=== PATIENT | male | born 1970 | race Caucasian/White ===

== ENCOUNTER 2023-03-16 21:11 | Inpatient (IN) | payer BC ==
[~2023-03-16] VITALS: Ht 190.5 cm; Wt 102.1 kg
[2023-03-16 22:22] VITALS: BP 133/86; PULSE 66; RESP 17; TEMP 98.6; O2SAT 100
[2023-03-16] MEDS ORDERED: DEXTROSE 50% SYRINGE 50 ML IV PRN (22:30)
[2023-03-16 23:00] VITALS: BP 133/86; PULSE 66; RESP 17; TEMP 98.6; O2SAT 100
[2023-03-17 04:00] VITALS: BP 123/78; PULSE 65; RESP 17; TEMP 97.7; O2SAT 100
[2023-03-17 05:57] LABS: BASOPHILS % 0.5 % (0.0-1.0); EOSINOPHILS # (AUTO) 0.1 (0.0-0.4); EOSINOPHILS % 2.3 % (0.0-6.0); HEMATOCRIT 39.1 % (38.2-49.6); HEMOGLOBIN 13.3 g/dL (14.0-18.0); LYMPHOCYTES # (AUTO) 2.4 (1.0-3.2); LYMPHOCYTES % 38.3 % (18.0-39.1); MEAN CORPUSCULAR HEMOGLOBIN 29.6 pg (28-32); MEAN CORPUSCULAR VOLUME 86.9 fL (81-99); MONOCYTES # (AUTO) 0.5 (0.2-0.8); MONOCYTES % 8.3 % (4.4-11.3); NEUTROPHILS # (AUTO) 3.1 (2.1-6.9); NEUTROPHILS % 50.4 % (38.7-80.0); PLATELET COUNT 232 x10e3/uL (140-360); RED CELL DISTRIBUTION WIDTH 11.6 % (11.7-14.4); WHITE BLOOD COUNT 6.13 x10e3/uL (4.8-10.8)
[2023-03-17 06:37] LABS: CALCIUM 8.4 mg/dL (8.4-10.2); CREATININE, SERUM 0.95 mg/dL (0.72-1.25)
[2023-03-17 09:22] VITALS: BP 128/80; PULSE 59; RESP 18; TEMP 97.9; O2SAT 100
[2023-03-17 09:35] VITALS: BP 128/80; PULSE 59; RESP 18; TEMP 97.9; O2SAT 100
[2023-03-17] MEDS: INSULIN REGULAR, HUMAN 100 UNIT/1 ML SQ SCH ×4 (09:46→20:59)
[2023-03-17] MEDS: Vancomycin IV 1 GM in SODIUM CHLORIDE 0.9% 250ML 250 ML IV SCH ×2 (12:57→20:59)
[2023-03-17 14:06] VITALS: BP 119/85; PULSE 67; RESP 17; TEMP 98.1; O2SAT 99
[2023-03-17] MEDS ORDERED: ACETAMINOPHEN 325 MG TAB PO ONE (18:45)
[2023-03-17] MEDS: CEFTRIAXONE 2 GM in SODIUM CHLORIDE 0.9% 100 ML IV SCH (18:51)
[2023-03-17 20:00] VITALS: BP 131/80; PULSE 86; RESP 17; TEMP 98; O2SAT 97
[2023-03-18] VITALS (7 sets, daily range): BP systolic 109–124; BP diastolic 72–86; PULSE 54–76; RESP 16–18; TEMP 97.2–98.2; O2SAT 96–100
[2023-03-18 06:21] LABS: BASOPHILS % 0.7 % (0.0-1.0); EOSINOPHILS # (AUTO) 0.1 (0.0-0.4); HEMATOCRIT 39.8 % (38.2-49.6); HEMOGLOBIN 13.8 g/dL (14.0-18.0); LYMPHOCYTES % 32.9 % (18.0-39.1); MEAN CORPUSCULAR HEMOGLOBIN 29.4 pg (28-32); MEAN CORPUSCULAR HGB CONC 34.7 g/dL (31-35); MEAN CORPUSCULAR VOLUME 84.9 fL (81-99); MONOCYTES # (AUTO) 0.4 (0.2-0.8); MONOCYTES % 7.3 % (4.4-11.3); NEUTROPHILS # (AUTO) 3.4 (2.1-6.9); NEUTROPHILS % 56.8 % (38.7-80.0); PLATELET COUNT 253 x10e3/uL (140-360); RED BLOOD COUNT 4.69 x10e6/uL (4.3-5.7); RED CELL DISTRIBUTION WIDTH 11.8 % (11.7-14.4); WHITE BLOOD COUNT 5.92 x10e3/uL (4.8-10.8)
[2023-03-18 07:20] LABS: CALCIUM 8.1 mg/dL (8.4-10.2); CREATININE, SERUM 0.91 mg/dL (0.72-1.25); VANCOMYCIN,TROUGH 9.9 ug/mL (5.0-10.0)
[2023-03-18] MEDS: INSULIN REGULAR, HUMAN 100 UNIT/1 ML SQ SCH ×4 (07:30→21:41)
[2023-03-18] MEDS ORDERED: METOCLOPRAMIDE HCL 10 MG/2ML VIAL IV SCH ×3 (07:30→17:00)
[2023-03-18] MEDS: Vancomycin IV 1 GM in SODIUM CHLORIDE 0.9% 250ML 250 ML IV SCH ×2 (09:10→21:30)
[2023-03-18] MEDS ORDERED: SODIUM CHLORIDE 0.9% 250ML 250 ML ONE (09:17)
[2023-03-18] MEDS: ACETAMINOPHEN 325 MG TAB PO PRN (10:49)
[2023-03-18] MEDS ORDERED: FENTANYL CITRATE/PF 100MCG/2 ML INJ ONE (12:21)
[2023-03-18] MEDS ORDERED: ACETAMINOPHEN 1000 MG/100 ML 100 ML IV ONE (12:25)
[2023-03-18] MEDS ORDERED: PROPOFOL IV EMULSION 10 MG/ML 20 ML VIAL ONE (12:56)
[2023-03-18] MEDS ORDERED: SEVOFLURANE INHAL SOLN 250 ML PEN BTL ONE (12:56)
[2023-03-18] MEDS ORDERED: ONDANSETRON HCL INJ 2MG/ML 2ML 2 MG/ML VIAL ONE (12:56)
[2023-03-18] MEDS ORDERED: LIDOCAINE HCL 2% LOCAL INJ 5 ML SDV VIAL INJ ONE (12:56)
[2023-03-18] MEDS ORDERED: KETOROLAC TROMETHAMINE 30 MG/ML VIAL ONE (12:56)
[2023-03-18] MEDS ORDERED: DEXAMETHASONE SOD PHOS INJ 4 MG/ML SDV ONE (12:56)
[2023-03-18] MEDS ORDERED: BUPIVACAINE HCL 0.5% INJ 30 ML VIAL INJ ONE (13:00)
[2023-03-18] MEDS ORDERED: LIDOCAINE 2% /EPINEPHRINE 20 ML SDV INJ ONE (13:00)
[2023-03-18] MEDS: CEFTRIAXONE 2 GM in SODIUM CHLORIDE 0.9% 100 ML IV SCH (17:10)
[2023-03-19] VITALS (8 sets, daily range): BP systolic 113–133; BP diastolic 78–97; PULSE 57–70; RESP 18–20; TEMP 97.1–98.7; O2SAT 97–100
[2023-03-19] MEDS ORDERED: Morphine 2mg Syringe 2 MG/ML SYR IV PRN (07:45)
[2023-03-19] MEDS: INSULIN REGULAR, HUMAN 100 UNIT/1 ML SQ SCH ×4 (08:30→21:01)
[2023-03-19] MEDS: Vancomycin IV 1 GM in SODIUM CHLORIDE 0.9% 250ML 250 ML IV SCH ×2 (10:07→20:55)
[2023-03-19] MEDS: METFORMIN HCL 500 MG TAB PO SCH (18:27)
[2023-03-19] MEDS: CEFTRIAXONE 2 GM in SODIUM CHLORIDE 0.9% 100 ML IV SCH (18:27)
[2023-03-20] VITALS: BP 120/82; PULSE 67; RESP 18; TEMP 97.8; O2SAT 97
[2023-03-20 04:00] VITALS: BP 129/91; PULSE 75; RESP 18; TEMP 98; O2SAT 97
[2023-03-20] MEDS: ACETAMINOPHEN 325 MG TAB PO PRN (06:00)
[2023-03-20] MEDS: INSULIN REGULAR, HUMAN 100 UNIT/1 ML SQ SCH ×2 (08:00→12:30)
[2023-03-20 08:34] VITALS: BP 128/84; PULSE 64; RESP 20; TEMP 98.1; O2SAT 100
[2023-03-20 09:00] VITALS: BP 128/84; PULSE 64; RESP 20; TEMP 98.1; O2SAT 100
[2023-03-20] MEDS: METFORMIN HCL 500 MG TAB PO SCH (09:00)
[2023-03-20] MEDS: Vancomycin IV 1 GM in SODIUM CHLORIDE 0.9% 250ML 250 ML IV SCH (09:41)
[2023-03-20] MEDS ORDERED: ACETAMINOPHEN 325 MG TAB PO PRN (11:00)
[2023-03-20 12:37] VITALS: BP 118/84; PULSE 68; RESP 18; TEMP 97.8; O2SAT 100
[2023-03-20 16:24] VITALS: BP 138/69; PULSE 79; RESP 20; TEMP 98.1; O2SAT 100
== END 2023-03-20 17:45 | disposition home or self-care (01) | DRG 617 ==
LOC: MED/SURG3 21:46
PROVIDERS: ADMIT Internal Medicine; ATTEND Internal Medicine
PROC: 0Y6Q0Z0 Detachment at Left 1st Toe, Complete, Open Approach (ICD-10-PCS; principal; 2023-03-18 13:01)
DX: E11.69 Type 2 diabetes mellitus with other specified complication (principal); M86.172 Other acute osteomyelitis, left ankle and foot; E11.65 Type 2 diabetes mellitus with hyperglycemia; Z98.84 Bariatric surgery status
CPT/HCPCS: 36415; 80048; 80202; 82948; 83036; 85025; 87071; 87075; 87205; 88304; 88305; 88311; 96372; 99252; J0696; J1100; J1885; J2001; J2405; J2543; J7050